=== PATIENT | female | born 1930 | race Caucasian/White ===

== ENCOUNTER 2017-01-28 09:38 | Inpatient (IN) | payer BC, OTHER ==
[2017-01-28] VITALS (35 sets, daily range): BP systolic 71–196; BP diastolic 29–168
[~2017-01-28] VITALS: Ht 170.2 cm; Wt 74.8 kg
[2017-01-28] MEDS ORDERED: NALOXONE PREFILLED SYRINGE 2 MG/2 ML SYRINGE ONE (09:54)
[2017-01-28] MEDS ORDERED: ALBUTEROL FS 2.5 MG/3 ML VIAL.NEB CONTNEB ONE (10:00)
[2017-01-28] MEDS ORDERED: IPRATROPIUM NEB FS 0.5 MG/2.5 ML AMPUL.NEB NEB ONE (10:00)
[2017-01-28] MEDS ORDERED: IV NS 0.9% 1,000 ML BAG IV ONE (10:00)
[2017-01-28] MEDS ORDERED: NALOXONE HCL 0.4 MG/ML AMPUL IV ONE (10:00)
--- NOTE | 2017-01-28 10:00 | NUR ---
DENISSE Tamayo FROM [facility] FOR SOB THIS AM 84% O2 NOTED IN FIELD. NITOR GIVEN ON FIELD. AT BS FOR EVAL. ON NONREBREATHER. LABORED BREATHING NOTED. AMS NOTED. IV ACCESS KENO WRITER. SECOND IV ACCESS INITIATED. SAFETY AND COMFORT MEASURES PROVIDED. WILL MONITOR.
[2017-01-28 10:02] LABS: ABG BASE EXCESS -5.5 mmol/L; ABG OXYGEN SATURATION 97.3 % (92.0-98.5); ABG PCO2 40.6 mmHg (35.0-45.0); ABG PH 7.317 (7.350-7.450); ABG PO2 101.7 mmHg (75.0-100.0); AaDO2 426.1 mmHg; COHb 0.3 % (0.5-1.5); MetHb 0.3 % (0.0-1.5); O2Hb 96.7 % (94.0-97.0); SITE, ABG Right Radial; VENT MODE, BG NRB
--- NOTE | 2017-01-28 10:02 | NUR ---
RT AT BS FOR ABG. MEDICATED ORDERED.
--- NOTE | 2017-01-28 10:02 | NUR ---
SENIOR ENVIRONMENTAL TECHNICIAN AT FOR BLOOD DRAW.
[2017-01-28] MEDS ORDERED: ALBUTEROL FS 2.5 MG/3 ML VIAL.NEB ONE (10:03)
[2017-01-28] MEDS ORDERED: IPRATROPIUM NEB FS 0.5 MG/2.5 ML AMPUL.NEB ONE (10:04)
[2017-01-28 10:21] LABS: BASOPHILS % (AUTO) 0.4 % (0.0-2.0); EOSINOPHILS % (AUTO) 0.1 % (0.0-6.0); HEMATOCRIT 44 % (33-45); HEMOGLOBIN 14.3 g/dL (11.5-14.8); LYMPHOCYTES # (AUTO) 0.8 /CMM (0.8-4.8); LYMPHOCYTES % (AUTO) 10.3 % (20.0-44.0); MEAN CORPUSCULAR HEMOGLOBIN 30 PG (26.0-33.0); MEAN CORPUSCULAR HGB CONC 33 g/dl (31.0-36.0); MEAN CORPUSCULAR VOLUME 92 fL (82-100); MONOCYTES # (AUTO) 0.8 /CMM (0.1-1.30); MONOCYTES % (AUTO) 10.3 % (2.0-12.0); NEUTROPHILS # (AUTO) 5.9 /CMM (1.8-8.9); NEUTROPHILS % (AUTO) 78.9 % (43.0-81.0); PLATELET COUNT (AUTO) 225 /CMM (150-450); RDW COEFFICIENT OF VARIATION 12.9 (11.5-15.0); RED BLOOD CELL COUNT(AUTO) 4.73 MIL/uL (4.0-5.2); WHITE BLOOD COUNT (AUTO) 7.5 K/uL (4.3-11.0)
[2017-01-28 10:31] LABS: CARBON DIOXIDE 23 mmol/L (21-32); CHLORIDE 109 mmol/L (98-107); CREATININE 1.6 mg/dL (0.6-1.3); GLUCOSE 263 mg/dL (74-106); POTASSIUM 4.7 mmol/L (3.5-5.1); SODIUM SERUM 142 mmol/L (136-145); UREA NITROGEN, BLOOD 42 mg/dL (7-18)
[2017-01-28 10:34] LABS: INR 1.03 (0.87-1.13); PROTHROMBIN TIME 10.7 SECS (9.5-12.7)
[2017-01-28] MEDS ORDERED: GABA-532 PO (10:37)
[2017-01-28] MEDS ORDERED: ACET-868 PO (10:37)
[2017-01-28] MEDS ORDERED: GUAI100S27 PO (10:37)
[2017-01-28] MEDS ORDERED: LISI-607 PO (10:37)
[2017-01-28] MEDS ORDERED: MEMA10TA PO (10:37)
[2017-01-28] MEDS ORDERED: LOPE-156 PO (10:37)
[2017-01-28] MEDS ORDERED: OLAN5TAB3 PO (10:37)
[2017-01-28] MEDS ORDERED: DONE10TA44 PO (10:37)
[2017-01-28 10:45] LABS: ALANINE AMINOTRANSFERASE 21 U/L (12-78); ALBUMIN 2.9 g/dL (3.4-5.0); ALKALINE PHOSPHATASE 85 U/L (46-116); ASPARTATE AMINOTRANSFERASE 23 U/L (15-37); B-TYPE NATRIURETIC PEPTIDE 3459 PG/ML (0-125); BILIRUBIN,DIRECT 0.1 mg/dL (0.0-0.2); BILIRUBIN,TOTAL 0.4 mg/dL (0.2-1.0); TOTAL PROTEIN, SERUM 7.9 g/dL (6.4-8.2)
[2017-01-28 10:52] LABS: TROPONIN I 0.444 ng/mL (0.00-0.056)
--- NOTE | 2017-01-28 11:20 | NUR ---
PT NOTED ON SOILED DIAPER WITH BM- CLEANED AND CHANGED. FC INITIATED. MEDICATED ORDERED.
[2017-01-28] MEDS ORDERED: ASPIRIN 300 MG/SUPP.RECT RC ONE ×2 (11:25→11:30)
[2017-01-28] MEDS ORDERED: FUROSEMIDE 40 MG/4 ML VIAL ONE (11:25)
[2017-01-28] MEDS ORDERED: FUROSEMIDE 40 MG/4 ML VIAL IV ONE (11:30)
[2017-01-28] MEDS ORDERED: METOPROLOL TARTRATE INJ 5 MG/5 ML AMPUL ONE (12:10)
--- NOTE | 2017-01-28 12:10 | NUR ---
DR. VARGAS AT BS.
[2017-01-28] MEDS ORDERED: METOPROLOL TARTRATE INJ 5 MG/5 ML AMPUL IV ONE (12:30)
--- NOTE | 2017-01-28 12:38 | NUR ---
REPORT GIVEN TO JOB RN FOR PING FOR ROOM 107
[2017-01-28] MEDS ORDERED: AMIODARONE 900 MG in IV D5W 482 ML IV PRN ×2 (13:00→14:00)
[2017-01-28] MEDS ORDERED: AMIODARONE 150 MG in IV D5W 100 ML IV ONE (13:00)
[2017-01-28] MEDS ORDERED: MAG HYDROX/AL HYDROX/SIMETH 30 ML UDC PO PRN (13:30)
[2017-01-28] MEDS ORDERED: ACETAMINOPHEN 325 MG TABLET PO PRN (13:30)
[2017-01-28] MEDS ORDERED: MAGNESIUM HYDROXIDE 30 ML UDC PO PRN (13:30)
[2017-01-28] MEDS ORDERED: Z GUARD REMEDY 2 OZ OINT TP PRN (13:30)
[2017-01-28] MEDS ORDERED: HYDROCODONE/APAP 5/325MG 1 EACH TABLET PO PRN (13:30)
[2017-01-28] MEDS: ASPIRIN 81 MG TAB.CHEW PO SCH (13:30)
[2017-01-28] MEDS ORDERED: ONDANSETRON HCL/PF 4 MG/2 ML VIAL IVP PRN (13:30)
[2017-01-28] MEDS ORDERED: ZOLPIDEM TARTRATE 5 MG TABLET PO PRN (13:30)
--- NOTE | 2017-01-28 14:05 | NUR ---
ICU INITIAL NOTE PT TRANSFERRED TO ICU OVERFLOW 107. SHE CAME FROM [facility] FOR SHORTNESS OF BREATH. CURRENTLY ON 10L NON REBRATHER [place]AG AT 96%. SBP 100-110'S CURRENTLY ON AMIO DRIP FOR UNCONTROLLED AFIB RATE HIGH 180'S IN E.R. (AFTER AMIO BOLUS, AMIO DRIP INITIATED AT 1335 IN E.R.). SHE IS LETHARGIC BUT ALERT TO HER NAME WEAK BUT ATTEMPTS TO SQUEEZE HANDS ON COMMAND.
[2017-01-28] MEDS: ENOXAPARIN SODIUM 80 MG/0.8 ML DISP.SYRIN SQ SCH (14:31)
--- NOTE | 2017-01-28 15:27 | NUR ---
AMIO GTT INITIATED AT 1335 WILL CHANGE DOSAGE TO 0.5MG AT 1935 PER PROTOCOL. WILL GIVE REPORT TO ONCOMING SHIFT.
--- NOTE | 2017-01-28 15:30 | NUR ---
PT PLACED ON 3L NC TOLERATING WELL SATURATION AT 95% AND GREATER.
[2017-01-28] MEDS: TOBRAMYCIN/DEXAMETH OPHTH DORPS 2.5 ML BOTTLE EACHEYE SCH ×3 (15:40→21:44)
--- NOTE | 2017-01-28 16:08 | NUR ---
PTS SBP IN THE 80'S WHILE ASLEEP AND 90'S WHILE AWAKE. SHE IS RESPONSIVE AND AROUSABLE TO VERBAL STIMULI, CALLED DR. VARGAS FOR PRESSORS, HE SAYS DO NOT START ANY PRESSORS AT THIS TIME KEEP MONITORING. GIVES OKAY TO INSERT MIDLINE.
[2017-01-28 16:21] LABS: APPEARANCE,URINE SL CLOUDY (CLEAR); BILIRUBIN,URINE NEGATIVE (NEGATIVE); BLOOD, URINE 1+ Ery/uL (NEGATIVE); COLOR,URINE YELLOW (YELLOW); KETONES,URINE TRACE (NEGATIVE); LEUKOCYTE ESTERASE ,URINE 1+ (NEGATIVE); NITRITE, URINE POSITIVE (NEGATIVE); PH,URINE 5.5 (5.0-8.0); PROTEIN,URINE NEGATIVE (NEGATIVE); UGLUCOSE NEGATIVE (NEGATIVE); UROBILINOGEN,URINE 0.2 EU/dL (0.2)
[2017-01-28 16:34] LABS: BACTERIA,URINE Moderate /HPF (None Seen); SQUAMOUS EPITHELIAL CELL,UR Many /HPF (None Seen); URINE AMORPHOUS URATE Moderate /HPF (None Seen)
[2017-01-28] MEDS: FUROSEMIDE 40 MG/4 ML VIAL IV SCH (16:51)
--- NOTE | 2017-01-28 17:04 | NUR ---
PT'S SON ARMANDO CALL [phone] HE CALLED AND I UPDATED HIM ABOUT PT'S STATUS AND PLAN OF CARE.
--- NOTE | 2017-01-28 20:00 | NUR ---
Received patient oriented to name otherwise confused.Bilateral mittens in place to prevent pulling out iv access,NC and monitoring manager leads.Respiration even and unlabored with occasional cough.Unable to expectorate secretions.O2 3L NC saturating 95%.No distress noted.Patient tele from Afib converted to SR 80's- SB 50's non sustaining.Amiodarone drip infusing @ 0.5 mg/min to karen midline. Site intact.FC to gravity draining clear yellow urine.Turned and repositioned.Continue monitoring.
[2017-01-28] MEDS ORDERED: ENOXAPARIN SODIUM 80 MG/0.8 ML DISP.SYRIN SQ SCH (21:00)
--- NOTE | 2017-01-28 21:20 | NUR ---
Patient BP unstable down to 71/40,73/43,74/60 and HR 48-50'S non sustaining. Patient remains lethargic in no acute distress.GLUER MACHINE SETUP OPERATOR,Radha Calixto notified of patient status.Orders received and carried out.Amiodarone stopped and NS 500 ml bolus started.Continue monitoring.
[2017-01-28] MEDS ORDERED: IV NS 0.9% 500 ML IV ONE (21:30)
--- NOTE | 2017-01-28 22:53 | NUR ---
Patient BP down to 83/39 HR 47 non sustaining goes up to 74.Patient awake states Im thirsty.Oral care done.CENTER RECEPTIONIST,Radha Calixto updated of patient status.No new orders received.Continue to monitor.
[2017-01-29] VITALS (23 sets, daily range): BP systolic 79–156; BP diastolic 38–72
--- NOTE | 2017-01-29 | NUR ---
Patient resting.VS stable.SR.Turned and repositioned.
[2017-01-29] MEDS: TOBRAMYCIN/DEXAMETH OPHTH DORPS 2.5 ML BOTTLE EACHEYE SCH ×6 (01:19→21:12)
--- NOTE | 2017-01-29 04:00 | NUR ---
Bathed.complete linen changed.Turned and repositioned.Procedure well tolerated.
[2017-01-29 04:40] LABS: BASOPHILS % (AUTO) 0.2 % (0.0-2.0); EOSINOPHILS % (AUTO) 0.4 % (0.0-6.0); HEMATOCRIT 37 % (33-45); HEMOGLOBIN 12.2 g/dL (11.5-14.8); LYMPHOCYTES # (AUTO) 1.4 /CMM (0.8-4.8); LYMPHOCYTES % (AUTO) 19.6 % (20.0-44.0); MEAN CORPUSCULAR HEMOGLOBIN 30 PG (26.0-33.0); MEAN CORPUSCULAR HGB CONC 33 g/dl (31.0-36.0); MEAN CORPUSCULAR VOLUME 91 fL (82-100); MONOCYTES # (AUTO) 0.5 /CMM (0.1-1.30); MONOCYTES % (AUTO) 7.4 % (2.0-12.0); NEUTROPHILS % (AUTO) 72.4 % (43.0-81.0); PLATELET COUNT (AUTO) 197 /CMM (150-450); RDW COEFFICIENT OF VARIATION 13.4 (11.5-15.0); RED BLOOD CELL COUNT(AUTO) 4.02 MIL/uL (4.0-5.2); WHITE BLOOD COUNT (AUTO) 6.9 K/uL (4.3-11.0)
[2017-01-29 04:56] LABS: ALANINE AMINOTRANSFERASE 19 U/L (12-78); ALBUMIN 2.4 g/dL (3.4-5.0); ALKALINE PHOSPHATASE 65 U/L (46-116); ASPARTATE AMINOTRANSFERASE 13 U/L (15-37); CALCIUM, SERUM 9.4 mg/dL (8.5-10.1); CHLORIDE 113 mmol/L (98-107); CREATININE 1.5 mg/dL (0.6-1.3); GLUCOSE 139 mg/dL (74-106); MAGNESIUM 1.9 mg/dL (1.8-2.4); PHOSPHORUS 2.4 mg/dL (2.5-4.9); POTASSIUM 3.5 mmol/L (3.5-5.1); SODIUM SERUM 146 mmol/L (136-145); UREA NITROGEN, BLOOD 43 mg/dL (7-18)
[2017-01-29 05:08] LABS: CARBON DIOXIDE 23 mmol/L (21-32)
[2017-01-29 05:09] LABS: BILIRUBIN,TOTAL 0.4 mg/dL (0.2-1.0); TOTAL PROTEIN, SERUM 6.6 g/dL (6.4-8.2)
[2017-01-29 05:31] LABS: CHOLESTEROL 13 mg/dL (<200); HDL CHOLESTEROL 44 mg/dL (40-60); LDL 81 mg/dL (0-99); THYROID STIMULATING HORMONE 0.671 uIU/mL (0.358-3.74); TRIGLYCERIDES 59 mg/dL (30-150)
--- NOTE | 2017-01-29 07:00 | NUR ---
Patient resting in no distress.SBP 85,SR 50's-70's.All needs attended.Endorsed to am shift RN for continuity of care.
--- NOTE | 2017-01-29 07:56 | NUR ---
INITIAL LODGE OFFICER NOTE RCVD PT SLEEPING IN BED AROUSED TO TOUCH. SR/SB ON TELE VITAL SIGNS STABLE AT THIS TIME. PT SHOWING NO S/O DISTRESS/PAIN. PT TOLERATING O2 VIA NC. PT ALERT TO NAME ABLE TO FOLLOW SIMPLE COMMANDS. BILATERAL MITTENS IN PLACE CIRCULATION CHECKS MADE. PULSES PRESENT BILATERALLY. PAULSON IN PLACE DRAINING CLOUDY, YELLOW URINE. IV SITES C/D/I/PATENT. NO S/O INFILTRATION/PHLEBITIS OBSERVED. NO IVF INFUSING. WILL CONTINUE TO MONITOR PT FOR SAFETY AND COMFORT. CALL LIGHT WITHIN REACH. BED IN LOW AND LOCKED POSITION.
[2017-01-29] MEDS: ASPIRIN 81 MG TAB.CHEW PO SCH (08:32)
[2017-01-29] MEDS: ENOXAPARIN SODIUM 80 MG/0.8 ML DISP.SYRIN SQ SCH (08:44)
--- NOTE | 2017-01-29 08:54 | NUR ---
CAR HOPPER NOTE PT'S SB 30-40S, ST 130s NON-SUSTAINING. RADIAL PULSE PALPATED IN 50-60s. WILL CONTINUE TO MONITOR.
[2017-01-29] MEDS: FUROSEMIDE 40 MG/4 ML VIAL IV SCH (08:58)
--- NOTE | 2017-01-29 09:56 | NUR ---
PLANT CONTROLLER NOTE DR. DWYER IN UNIT INFORMED OF PT'S LABILE HR 30/40s -140s THIS AM. HE RECOMMENDED TO CONTINUE WITH AMIODARONE PO. WILL CONTINUE TO MONITOR. BP MAINTAINED WNL. Addendum: 01/29/17 at 1035 by PRITESH CANALES RN DR. DWYER INFORMED OF PT'S LOW SBP LOW 70s OVERNIGHT. AND 80s THIS AM. BP MANUALLY CHECKED 103/50 RICHARD. WILL CONTINUE TO MONITOR. HE RECOMMENDS PT TO BE DOWNGRADED TO TELE.
[2017-01-29] MEDS ORDERED: POTASSIUM PHOSPHATE MM 15 MMOL in IV D5W 250 ML IV SCH (10:00)
[2017-01-29] MEDS: AMIODARONE HCL 200 MG TABLET PO SCH ×2 (10:00→16:22)
[2017-01-29] MEDS ORDERED: RIVAROXABAN 10 MG TABLET PO SCH (10:00)
[2017-01-29] MEDS: POTASSIUM PHOSPHATE MM 7.5 MMOL in IV D5W 100 ML IV SCH ×2 (10:42→13:54)
--- NOTE | 2017-01-29 11:12 | NUR ---
MEDICATION PULP MACHINE OPERATOR NOTE AMIODARONE HELD HR PALPATED 56 WILL CONTINUE TO MONITOR.
[2017-01-29] MEDS: RIVAROXABAN 15 MG TABLET PO SCH (13:18)
--- NOTE | 2017-01-29 13:21 | NUR ---
MOBILE EQUIPMENT OPERATOR NOTE PT'S SONARMANDO AT BEDSIDE UPDATED ON PT'S CONDITION. QUESTIONS ANSWERED. WILL CONTINUE TO MONITOR PT.
--- NOTE | 2017-01-29 19:50 | NUR ---
TELE/RN NOTES RECEIVED PT. LYING IN BED. AWAKE, ALERT AND ORIENTED X1, FOLLOWS COMMANDS. BREATHING EVEN AND UNLABORED ON 3LPM O2 VIA NC. NO SOB, RESPIRATORY DISTRESS OR COMPLAINTS OF PAIN NOTED AT THIS TIME. PT. WITH EXTERNAL STONE LAYER PRESENT AND INTACT. CURRENT RHYTHM = SINUS RHYTHM WITH PVC'S HR 86. PT. IV SITES CLEAN, DRY AND INTACT. NO SIGNS OR SYMPTOMS OF INFECTION OR INFILTRATION NOTED. PT. WITH BILATERAL MITTENS PRESENT AND INTACT. CIRCULATION CHECKS MADE. PT. WITH PAULSON CATHETER PRESENT, PATENT AND INTACT DRAINING CLOUDY YELLOW URINE. BED LOCKED AND IN LOWEST POSITION, SIDE RAILS UP X3, BED ALARM ON, CALL LIGHT WITHIN REACH, WILL CONTINUE TO MONITOR.
[2017-01-30] VITALS: BP 135/70
[2017-01-30] MEDS: TOBRAMYCIN/DEXAMETH OPHTH DORPS 2.5 ML BOTTLE EACHEYE SCH ×6 (01:49→20:33)
[2017-01-30 04:00] VITALS: BP 138/68
--- NOTE | 2017-01-30 06:48 | NUR ---
TELE/RN NOTES PT. IS LYING IN BED RESTING. BREATHING EVEN AND UNLABORED ON 3LPM O2 VIA NC. NO SOB, RESPIRATORY DISTRESS OR COMPLAINTS OF PAIN NOTED AT THIS TIME. PT. WITH EXTERNAL RN PICU PRESENT AND INTACT. CURRENT RHYTHM = SINUS RHYTHM HR 96. PT. IV SITES CLEAN, DRY AND INTACT. NO SIGNS OR SYMPTOMS OF INFECTION OR INFILTRATION NOTED. PT. WITH BILATERAL MITTENS PRESENT AND INTACT. CIRCULATION CHECKS MADE. PT. WITH PAULSON CATHETER PRESENT, PATENT AND INTACT DRAINING CLOUDY YELLOW URINE. ALL PT. NEEDS MET. PT. TURNED AND REPOSITIONED Q2H AND NEEDED. BED LOCKED AND IN LOWEST POSITION, SIDE RAILS UP X3, BED ALARM ON, CALL LIGHT WITHIN REACH, WILL ENDORSE TO DAYSHIFT NURSE FOR CONTINUITY OF CARE.
--- NOTE | 2017-01-30 07:05 | NUR ---
RN NOTES RECEIVED PT ON BED, ALERT AND ORIENTED X1, FOLLOWS COMMANDS. RESPIRATION EVEN AND UNLABORED, ON 3L O2 N/C , NO SOB NOTED. L UPPER ARM MILD LINE AND R UPPER ARM IV SITE G 20 CDI, NO SIGNS AND SYMPTOMS OF INFECTION OR INFILTRATION NOTED. PT. WITH BILATERAL MITTENS PRESENT AND INTACT. PT HAS TENDENCY TO PULL ON HER LINES , CIRCULATION CHECKS MADE. PAULSON CATHETER DRAINING TO GRAVITY WITH CLOUDY YELLOW URINE. CALL LIGHT WITHIN EASY REACH, BED LOCKED AND IN LOWEST POSITION, SIDE RAILS UP X3, BED ALARM ON FOR PT SAFETY , WILL CONTINUE TO MONITOR.
[2017-01-30 08:00] VITALS: BP 119/69
--- NOTE | 2017-01-30 08:55 | NUR ---
WOUND CARE CONSULT: PT PRESENTS WITH RASH TO BUTTOCKS WITH SKIN STAINING. RECOMMENDATIONS MADE FOR SKIN PROTECTION AND CARE. DISCUSSED WITH NURSING STAFF. PT ON DANNY ISOFLEX LOW AIRLOSS BED. ALL SKIN PROTECTION MEASURES IN PLACE. WILL SEE PRN. TAYLOR IN AGREEMENT WITH PLAN OF CARE. Addendum: 01/30/17 at 0856 by JOSE FERNÁNDEZ WNDNU Amended: Links added.
[2017-01-30] MEDS: AMIODARONE HCL 200 MG TABLET PO SCH ×2 (08:59→16:37)
[2017-01-30] MEDS: CLOTRIMAZOLE 1% 15 GM TUBE TP SCH ×2 (12:30→16:37)
[2017-01-30] MEDS ORDERED: IV D5/0.45 NACL 1,000 ML IV ONE (14:00)
--- NOTE | 2017-01-30 14:30 | NUR ---
RN NOTES NOTIFIED REGARDING NPO ORDER ,PT PLACED BACK ON TELE AND ORDER RECEIVED TO START PT ON IVF D51/2NS AT 80CC/HR .
[2017-01-30 16:00] VITALS: BP 128/62
[2017-01-30] MEDS: RIVAROXABAN 15 MG TABLET PO SCH (16:36)
--- NOTE | 2017-01-30 18:00 | NUR ---
RN NOTES VSS STABLE, HOB ELEVATED, MEDICATED PER MD ORDER , SR UP x3, CALL LIGHT WITHIN EASY REACH, IVF D51/2NS AT 80CC/HR RUNNING VIA L UPPER ARM MIDLINE , WILL ENDORSE TO JAX SHIFT NURSE FOR JAY .
[2017-01-30 20:00] VITALS: BP 130/66
--- NOTE | 2017-01-30 20:08 | NUR ---
ASSISTANT BROKER INITIAL NOTE PT IS IN NO ACUTE DISTRESS. PT IS A/O X1 BUT FOLLOWS COMMANDS AT TIMES. BRETAHING PATTERN IS ADEQUATE WITH GOOD CHEST RISE/FALL. ON TELE WITH SR W PVC'S. F/C IS CLEAN DRY AND INTACT DRAINING URINE. PT IS NPO DUE TO ASPIRATION PRECAUTIONS. RICHARD MIDLINE AND KAIN 20G ARE CLEAN DRY AND INTACT. SAFETY AND COMFORT MEASURES TO BE PLACED DURING THE SHIFT. WILL CONTINUE TO MONITOR FOR CHANGES.
[2017-01-31] VITALS: BP 118/56
[2017-01-31] MEDS: TOBRAMYCIN/DEXAMETH OPHTH DORPS 2.5 ML BOTTLE EACHEYE SCH ×6 (00:57→21:38)
[2017-01-31 04:00] VITALS: BP 135/75
--- NOTE | 2017-01-31 07:00 | NUR ---
RN NOTE RECEIVED PT ON BED, A/Ox1, RESPIRATION EVEN AND UNLABORED, NO SOB NOTED, FOLLOWS SIMPLE COMMANDS , ON TELE WITH SR W PVC'S. PAULSON DRAINING TO GRAVITY WITH YELLOW URINE. NPO DUE TO ASPIRATION PRECAUTIONS. L UA MIDLINE AND R UA 20G SITES ARE CLEAN DRY , INTACT. SR UP x3, CALL LIGHT WITHIN EASY REACH, BED LOCKED AND IN LOWEST POSITION. WILL CONTINUE TO MONITOR PT CLOSELY
[2017-01-31 08:00] VITALS: BP 124/60
[2017-01-31] MEDS: AMIODARONE HCL 200 MG TABLET PO SCH ×2 (08:20→17:03)
[2017-01-31] MEDS: CLOTRIMAZOLE 1% 15 GM TUBE TP SCH ×2 (08:21→17:05)
[2017-01-31 08:58] LABS: BASOPHILS # (AUTO) 0.1 /CMM (0.0-0.2); BASOPHILS % (AUTO) 0.5 % (0.0-2.0); EOSINOPHILS # (AUTO) 0.1 /CMM (0.0-0.7); HEMATOCRIT 41 % (33-45); HEMOGLOBIN 13.4 g/dL (11.5-14.8); LYMPHOCYTES # (AUTO) 1.5 /CMM (0.8-4.8); LYMPHOCYTES % (AUTO) 13.8 % (20.0-44.0); MEAN CORPUSCULAR HEMOGLOBIN 30 PG (26.0-33.0); MEAN CORPUSCULAR HGB CONC 33 g/dl (31.0-36.0); MEAN CORPUSCULAR VOLUME 90 fL (82-100); MONOCYTES # (AUTO) 0.3 /CMM (0.1-1.30); MONOCYTES % (AUTO) 2.5 % (2.0-12.0); NEUTROPHILS # (AUTO) 8.7 /CMM (1.8-8.9); NEUTROPHILS % (AUTO) 82.2 % (43.0-81.0); PLATELET COUNT (AUTO) 271 /CMM (150-450); RDW COEFFICIENT OF VARIATION 13.6 (11.5-15.0); RED BLOOD CELL COUNT(AUTO) 4.54 MIL/uL (4.0-5.2); WHITE BLOOD COUNT (AUTO) 10.6 K/uL (4.3-11.0)
[2017-01-31 09:08] LABS: CALCIUM, SERUM 9.6 mg/dL (8.5-10.1); CARBON DIOXIDE 23 mmol/L (21-32); CHLORIDE 113 mmol/L (98-107); CREATININE 1.5 mg/dL (0.6-1.3); GLUCOSE 165 mg/dL (74-106); POTASSIUM 3.4 mmol/L (3.5-5.1); SODIUM SERUM 147 mmol/L (136-145); UREA NITROGEN, BLOOD 47 mg/dL (7-18)
--- NOTE | 2017-01-31 09:30 | NUR ---
RN NOTES RA [address] HARRIS REQUEST . O2 SAT ON RA 87%. CONTINUE O2 AT 3L N/C PER DR Pooja HARRIS ORDER . CONTINUE TO MONITOR .
[2017-01-31] MEDS: Potassium Chloride 10 MEQ in IV D5/0.45 NACL 1,000 ML IV PRN (10:02)
--- NOTE | 2017-01-31 11:00 | NUR ---
RN NOTES DR HARRIS NOTIFIED REGARDING THE LAB AND C-XRAY RESULTS PER HIS REQUEST .
[2017-01-31] MEDS: PIPERACILLIN /TAZOBACTAM 2.25 G in IV D5W 50 ML IV SCH ×2 (11:42→17:02)
[2017-01-31 12:00] VITALS: BP 139/82
[2017-01-31] MEDS ORDERED: POTASSIUM CL. PREMIX PERIPHER. 50 ML IV ONE (13:00)
[2017-01-31] MEDS: POTASSIUM CL. PREMIX PERIPHER. 50 ML IV SCH ×2 (13:16→14:25)
[2017-01-31 16:00] VITALS: BP 137/71
[2017-01-31] MEDS: RIVAROXABAN 15 MG TABLET PO SCH (17:03)
--- NOTE | 2017-01-31 18:00 | NUR ---
RN NOTES PT MEDICATED PER MD ORDER, TOLERATING PUREED DIET WELL, HOB ELEVATED AT ALL TIMES , SR UP x3, CALL LIGHT WITHIN EASY REACH, NO SIGNIFICANT CHANGES NOTED ON THIS SHIFT , WILL ENDORSE TO PRODUCT DIRECTOR NURSE FOR JAY .
[2017-01-31 20:00] VITALS: BP 123/63
[2017-02-01] VITALS: BP 126/68
[2017-02-01] MEDS: PIPERACILLIN /TAZOBACTAM 2.25 G in IV D5W 50 ML IV SCH ×4 (00:28→17:15)
[2017-02-01] MEDS: Potassium Chloride 10 MEQ in IV D5/0.45 NACL 1,000 ML IV PRN (01:55)
[2017-02-01] MEDS: TOBRAMYCIN/DEXAMETH OPHTH DORPS 2.5 ML BOTTLE EACHEYE SCH ×5 (01:56→17:55)
[2017-02-01 04:00] VITALS: BP 126/58
--- NOTE | 2017-02-01 05:00 | NUR ---
RN INITIAL NOTES RECEIVED REPORT FROM GILBERT MONGE FOR THE PATIENT'S JAY. PATIENT IS SLEEPING ON BED, EASILY AROUSABLE TO NAME AND TOUCH. A/O X1 ONLY. ON 3L NASAL CANNULA SATURATING WELL, NO S/S OF RESP DISTRESS. SR ON THE MONITOR. PAULSON CATH INTACT. RIGHT UPPER ARM 20G AND LEFT UPPER ARM MIDLINE WITH D5 1/2NS + 10MEQ KCL @ 80MLS/HR, BOTH LINES FLUSHED AND PATENT, NO S/S OF INFILTRATION/INFECTION, DRESSINGS CDI. BILATERAL MITTENS IN PLACE TO PREVENT THE PATIENT FROM PULLING LINE AND TUBINGS. BED LOW AND LOCKED, SIDERAILS UP, BED ALARM ON. WILL MONITOR
--- NOTE | 2017-02-01 06:35 | NUR ---
RN CLOSING NOTES PT REMAINS STABLE OF THE MOMENT. ALL DUE MEDS GIVEN, AM CARE PROVIDED. WILL ENDORSE JAY TO AM RN
[2017-02-01 06:43] LABS: BASOPHILS % (AUTO) 0.3 % (0.0-2.0); EOSINOPHILS # (AUTO) 0.5 /CMM (0.0-0.7); EOSINOPHILS % (AUTO) 3.9 % (0.0-6.0); HEMATOCRIT 37 % (33-45); HEMOGLOBIN 12.2 g/dL (11.5-14.8); LYMPHOCYTES % (AUTO) 16.6 % (20.0-44.0); MEAN CORPUSCULAR HEMOGLOBIN 30 PG (26.0-33.0); MEAN CORPUSCULAR HGB CONC 33 g/dl (31.0-36.0); MEAN CORPUSCULAR VOLUME 91 fL (82-100); MONOCYTES # (AUTO) 0.6 /CMM (0.1-1.30); MONOCYTES % (AUTO) 4.7 % (2.0-12.0); NEUTROPHILS # (AUTO) 9.1 /CMM (1.8-8.9); NEUTROPHILS % (AUTO) 74.5 % (43.0-81.0); PLATELET COUNT (AUTO) 248 /CMM (150-450); RDW COEFFICIENT OF VARIATION 13.6 (11.5-15.0); RED BLOOD CELL COUNT(AUTO) 4.07 MIL/uL (4.0-5.2); WHITE BLOOD COUNT (AUTO) 12.2 K/uL (4.3-11.0)
[2017-02-01 07:01] LABS: CALCIUM, SERUM 9.1 mg/dL (8.5-10.1); CARBON DIOXIDE 23 mmol/L (21-32); CHLORIDE 112 mmol/L (98-107); CREATININE 1.5 mg/dL (0.6-1.3); GLUCOSE 191 mg/dL (74-106); POTASSIUM 3.5 mmol/L (3.5-5.1); SODIUM SERUM 145 mmol/L (136-145); UREA NITROGEN, BLOOD 38 mg/dL (7-18)
--- NOTE | 2017-02-01 07:31 | NUR ---
RN NOTES RECEIVED PT FROM CONSTRUCTION ENGINEER IN STABLE CONDITION, RESTING IN BED ON 3L NC WITH NO SOB OR DISTRESS NOTED. A&0X1, SR ON THE TELE MONITOR HR 61. PAULSON DRAINING TO GRAVITY. RICHARD MIDLINE, KAIN 20G DRESSING DRY AND INTACT WITH IVF @ 80ML/HR. PT HAS MITTENS DUE TO EPISODES OF ATTEMPTING TO PULL OUT LINES DURING THE CONSTRUCTION ENGINEER, WILL REMOVE AND CHECK. BED LOCKED AND IN LOWEST POSITION, CALL LIGHT WITHIN REACH, SIDE RAILS UPX3, WILL CONT TO MONITOR.
[2017-02-01 08:00] VITALS: BP 132/66
--- NOTE | 2017-02-01 08:30 | NUR ---
RN NOTES DR HARRIS AT BEDSIDE, ATTEMPTED TO REMOVE NASAL CANNULA, PT O2 WENT TO 88% ON RA. PER DR HARRIS PT WILL BE DISCHARGED HOME WITH OXYGEN.
[2017-02-01] MEDS ORDERED: TOBR2.5D EACHEYE ×2 (08:36→08:42)
[2017-02-01] MEDS ORDERED: APIX2.5T PO (08:36)
[2017-02-01] MEDS: AMIODARONE HCL 200 MG TABLET PO SCH ×2 (08:50→17:15)
[2017-02-01] MEDS: CLOTRIMAZOLE 1% 15 GM TUBE TP SCH ×2 (08:51→17:18)
[2017-02-01] MEDS ORDERED: IPRATROPIUM NEB FS 0.5 MG/2.5 ML AMPUL.NEB NEB PRN (09:00)
[2017-02-01] MEDS ORDERED: ALBUTEROL FS 2.5 MG/0.5 ML VIAL.NEB NEB PRN (09:00)
[2017-02-01 16:00] VITALS: BP 131/81
--- NOTE | 2017-02-01 17:00 | NUR ---
RN NOTES REPORT GIVEN TO AURY FROM [facility], PT TO BE PICKED UP BY AMBULANCE AT 1630, DAUGHTER NOTIFIED.
[2017-02-01 17:15] VITALS: BP 131/18
[2017-02-01] MEDS: RIVAROXABAN 15 MG TABLET PO SCH (17:18)
--- NOTE | 2017-02-01 18:41 | NUR ---
RN NOTES PT DISCHARGED IN STABLE CONDITION WITH AMBULANCE AT BEDSIDE, OXYGEN ON, MIDLINE AND IV REMOVED.
== END 2017-02-01 18:33 | DRG 291 ==
LOC: ER 09:40 → ICUOV 12:52 → TELE1 01-29 10:48 → MEDSG1 01-30 07:09 → TELE1 01-30 13:53 → MEDSG1 02-01 08:21
PROVIDERS: ADMIT Internal Medicine; ATTEND Internal Medicine
PROC: 05H633Z Insertion of Infusion Device into Left Subclavian Vein, Percutaneous Approach (ICD-10-PCS; principal; 2017-01-28)
PROC: B547ZZA Ultrasonography of Left Subclavian Vein, Guidance (ICD-10-PCS; 2017-01-28)
DX: I13.0 Hypertensive heart and chronic kidney disease with heart failure and stage 1 through stage 4 chronic kidney disease, or unspecified chronic kidney disease (principal); G93.41 Metabolic encephalopathy; J96.01 Acute respiratory failure with hypoxia; N17.0 Acute kidney failure with tubular necrosis; D68.59 Other primary thrombophilia; N18.3 Chronic kidney disease, stage 3 (moderate); I48.0 Paroxysmal atrial fibrillation; I50.31 Acute diastolic (congestive) heart failure; J44.9 Chronic obstructive pulmonary disease, unspecified; F03.90 Unspecified dementia, unspecified severity, without behavioral disturbance, psychotic disturbance, mood disturbance, and anxiety; H10.9 Unspecified conjunctivitis
CPT/HCPCS: 36415; 36569; 36600; 71010-TC; 80048-TC; 80053-TC; 80061-TC; 80076-TC; 81000-TC; 83735-TC; 83880; 84100-TC; 84443-TC; 84484-TC; 85025-TC; 85730-TC; 87040-TC; 87081-TC; 87086-TC; 87186-TC; 87400; 92526; 92611-TC; 93307-TC; A4606; J0282; J1650; J1940; J2310; J2543; J3480; J3490; J7030; J7040; J7050; J7060; Z7610

== ENCOUNTER 2017-10-10 15:00 | Inpatient (IN) | payer BC, OTHER ==
[~2017-10-10] VITALS: Ht 152.4 cm; Wt 67.1 kg
[~2017-10-10 15:00] MED LIST: ACET-868 PO; APIX2.5T PO; DONE10TA44 PO; GABA-532 PO; GUAI100S27 PO; LISI-607 PO; LOPE-156 PO; MEMA10TA PO; OLAN5TAB3 PO; TOBR2.5D EACHEYE
--- NOTE | 2017-10-10 15:05 | NUR ---
AAOX2, [id number] FROM [facility] FOR MORE ALTERED THAN NORMAL. RR IS EVEN AND UNLABORED WITH NAD NOTED. SKIN IS WARM AND DRY. PLACED ON THE MONITOR AND HOSPITAL GOWN. AWAITING MD FOR EVAL.
[2017-10-10 15:36] LABS: BASOPHILS # (AUTO) 0.2 /CMM (0.0-0.2); BASOPHILS % (AUTO) 2.8 % (0.0-2.0); EOSINOPHILS % (AUTO) 2.3 % (0.0-6.0); HEMATOCRIT 42 % (33-45); HEMOGLOBIN 14.2 g/dL (11.5-14.8); LYMPHOCYTES # (AUTO) 1.8 /CMM (0.8-4.8); LYMPHOCYTES % (AUTO) 21.2 % (20.0-44.0); MEAN CORPUSCULAR HGB CONC 34 g/dl (31.0-36.0); MEAN CORPUSCULAR VOLUME 91 fL (82-100); MONOCYTES # (AUTO) 0.4 /CMM (0.1-1.30); MONOCYTES % (AUTO) 4.8 % (2.0-12.0); NEUTROPHILS # (AUTO) 5.8 /CMM (1.8-8.9); NEUTROPHILS % (AUTO) 68.9 % (43.0-81.0); PLATELET COUNT (AUTO) 186 /CMM (150-450); RDW COEFFICIENT OF VARIATION 13.1 (11.5-15.0); RED BLOOD CELL COUNT(AUTO) 4.61 MIL/uL (4.0-5.2); WHITE BLOOD COUNT (AUTO) 8.4 K/uL (4.3-11.0)
[2017-10-10 15:46] LABS: CALCIUM, SERUM 10.3 mg/dL (8.5-10.1); CARBON DIOXIDE 26 mmol/L (21-32); CHLORIDE 106 mmol/L (98-107); CREATININE 1.3 mg/dL (0.6-1.3); GLUCOSE 173 mg/dL (74-106); POTASSIUM 4.9 mmol/L (3.5-5.1); SODIUM SERUM 138 mmol/L (136-145); UREA NITROGEN, BLOOD 23 mg/dL (7-18)
[2017-10-10 15:47] LABS: INR 1.03 (0.85-1.15)
[2017-10-10 15:51] LABS: ALANINE AMINOTRANSFERASE 16 U/L (12-78); ALBUMIN 3.1 g/dL (3.4-5.0); ALKALINE PHOSPHATASE 66 U/L (46-116); ASPARTATE AMINOTRANSFERASE 13 U/L (15-37); BILIRUBIN,DIRECT 0.1 mg/dL (0.0-0.2); BILIRUBIN,TOTAL 0.2 mg/dL (0.2-1.0); TOTAL PROTEIN, SERUM 6.6 g/dL (6.4-8.2)
[2017-10-10 15:52] LABS: ACETAMINOPHEN < 2 ug/ml (10-30)
[2017-10-10 15:53] LABS: TROPONIN I < 0.017 ng/mL (0.00-0.056)
[2017-10-10 15:56] LABS: APPEARANCE,URINE Cloudy (CLEAR); BILIRUBIN,URINE Negative (NEGATIVE); BLOOD, URINE Small Ery/uL (NEGATIVE); COLOR,URINE Yellow (YELLOW); KETONES,URINE Trace (NEGATIVE); LEUKOCYTE ESTERASE ,URINE Large (NEGATIVE); NITRITE, URINE Negative (NEGATIVE); PROTEIN,URINE 30 mg/dl (NEGATIVE); UGLUCOSE Negative (NEGATIVE); UROBILINOGEN,URINE 0.2 EU/dL (0.2)
[2017-10-10 16:00] LABS: BACTERIA,URINE Many /HPF (None Seen); WBC,URINE TOO NUMEROUS TO COUN /HPF (0-3)
[2017-10-10] MEDS ORDERED: IV NS 0.9% 500 ML BAG IV ONE ×2 (16:00→17:00)
[2017-10-10 16:01] LABS: SQUAMOUS EPITHELIAL CELL,UR Moderate /HPF (None Seen)
[2017-10-10 16:17] LABS: THYROID STIMULATING HORMONE 0.985 uIU/mL (0.358-3.74)
--- NOTE | 2017-10-10 16:50 | NUR ---
PATIENT CAME BACK FROM CT HEAD.
--- NOTE | 2017-10-10 17:17 | NUR ---
DR DUBOSE ORDERED A TOTAL OF 1800ML OF IV NS TO BE GIVEN TO PATIENT PER SEPSIS PROTOCOL 31ML/KG.
[2017-10-10] MEDS ORDERED: METO-356 PO (17:30)
[2017-10-10] MEDS ORDERED: PIPERACILLIN /TAZOBACTAM 3.375 G in IV D5W 50 ML IV ONE (17:30)
[2017-10-10] MEDS ORDERED: IPRA3AMP23 IH (17:30)
[2017-10-10] MEDS ORDERED: IV NS 0.9% 1,000 ML BAG IV ONE (17:30)
[2017-10-10] MEDS ORDERED: LORA1TAB PO (17:30)
[2017-10-10] MEDS ORDERED: APIX2.5T PO (17:30)
--- NOTE | 2017-10-10 18:05 | NUR ---
Dr Chisholm at talking to the daughter.
--- NOTE | 2017-10-10 19:02 | NUR ---
Report given to GILBERT Ahuja for JAY.
--- NOTE | 2017-10-10 19:40 | NUR ---
CALLED TELE TO GIVE REPORT. PT NOT ASSIGNED YET. WILL CALL BACK IN 10 MINS.
--- NOTE | 2017-10-10 19:55 | NUR ---
CALLING REPORT TO TELE NURSE.
--- NOTE | 2017-10-10 20:10 | NUR ---
RN ADMITTING NOTES RECEIVED REPORT FROM RN CLINICAL TRIALS CULLEN. Pt WAS BROUGHT UP TO THE FLOOR VIA GURNEY. Pt WAS AWAKE. NO S/S OF ACUTE DISTRESS OR SOB NOTED. Pt IS A/OX1, ALERT ONLY TO NAME, VERY CONFUSED. Pt IS ABLE TO FOLLOW SOME INSTRUCTIONS TO SOME EXTENT, Pt IS VERBAL. IV ACCESS ON LHAND #20G. ON TELE MONITOR. SAFETY MEASURES IN PLACE. BED LOW, LOCKED, HOB ELEVATED, SIDE RAILS UP, AND BED ALARM ON. WILL CONTINUE TO MONITOR Pt THROUGHOUT THE NIGHT FOR SAFETY.
[2017-10-10 20:30] VITALS: BP 117/79
--- NOTE | 2017-10-10 23:03 | NUR ---
RN NOTES SPOKE WITH DR HARRIS ON THE PHONE. SAID OK TO CONTINUE WITH THE DNR CODE STATUS PER Pt's POLST. ALSO OK'd TO CONTINUE LORAZEPAM 1MG PO HS.
[2017-10-10] MEDS: IV 1/2NS 1000 ML 1,000 ML IV SCH (23:26)
[2017-10-10] MEDS ORDERED: LORAZEPAM 1 MG TABLET PO PRN (23:30)
[2017-10-11] VITALS: BP_SYST 117; BP_SYST 121; BP_DIAS 62; BP_DIAS 79
[2017-10-11 04:00] VITALS: BP 124/73
--- NOTE | 2017-10-11 06:35 | NUR ---
RN CLOSING NOTES NO SIGNIFICANT CHANGES IN Pt's CONDITION. Pt REMAINS STABLE AT THIS TIME. NO S/S OF ACUTE DISTRESS OR SOB NOTED. ALL NEEDS MET AND ATTENDED TO. SAFETY MEASURES IN PLACE. WILL ENDORSE TO DAYSHIFT RN FOR Pt's JAY.
[2017-10-11 06:39] LABS: CALCIUM, SERUM 9.2 mg/dL (8.5-10.1); CARBON DIOXIDE 22 mmol/L (21-32); CHLORIDE 110 mmol/L (98-107); CREATININE 1.1 mg/dL (0.6-1.3); GLUCOSE 116 mg/dL (74-106); POTASSIUM 3.9 mmol/L (3.5-5.1); SODIUM SERUM 140 mmol/L (136-145); UREA NITROGEN, BLOOD 19 mg/dL (7-18)
[2017-10-11 06:43] LABS: BASOPHILS % (AUTO) 0.6 % (0.0-2.0); EOSINOPHILS % (AUTO) 5.1 % (0.0-6.0); HEMATOCRIT 39 % (33-45); LYMPHOCYTES # (AUTO) 1.9 /CMM (0.8-4.8); LYMPHOCYTES % (AUTO) 28.7 % (20.0-44.0); MEAN CORPUSCULAR HGB CONC 33 g/dl (31.0-36.0); MEAN CORPUSCULAR VOLUME 93 fL (82-100); MONOCYTES # (AUTO) 0.5 /CMM (0.1-1.30); MONOCYTES % (AUTO) 6.8 % (2.0-12.0); NEUTROPHILS % (AUTO) 58.8 % (43.0-81.0); PLATELET COUNT (AUTO) 169 /CMM (150-450); RDW COEFFICIENT OF VARIATION 13.4 (11.5-15.0); RED BLOOD CELL COUNT(AUTO) 4.21 MIL/uL (4.0-5.2); WHITE BLOOD COUNT (AUTO) 6.7 K/uL (4.3-11.0)
--- NOTE | 2017-10-11 07:30 | NUR ---
RN [id number] NOTES RECEIVED PATIENT IN BED RESTING, CONFUSED. NO ACUTE DISTRESS, NO SOB. NO S/S OF PAIN OR DISCOMFORT. IV ACCESS INTACT AND PATENT. KEPT PATIENT SAFE AND COMFORTABLE. BED ALARM ON FOR SAFETY. BED IN LOW/LOCKED POSITION, SIDERAILS UP, CALL LIGHT IN REACH. WILL CONTINUE TO MONITOR ACCORDINGLY.
[2017-10-11 08:00] VITALS: BP 127/80
[2017-10-11] MEDS ORDERED: LEVO750T21 PO (08:54)
[2017-10-11] MEDS ORDERED: LEVOFLOXACIN (250MG) 250 MG TABLET PO SCH (09:00)
[2017-10-11] MEDS ORDERED: CEFTRIAXONE 1 G in IV D5W 50 ML IV SCH (10:00)
[2017-10-11] MEDS ORDERED: ALBUTEROL FS 2.5 MG/0.5 ML VIAL.NEB NEB PRN (11:30)
[2017-10-11] MEDS ORDERED: LOPERAMIDE HCL (2 MG CAP) 2 MG CAPSULE PO PRN (11:30)
[2017-10-11] MEDS ORDERED: GUAIFENESIN 300 MG/15 ML UDC PO PRN (11:30)
[2017-10-11] MEDS ORDERED: ACETAMINOPHEN 325 MG TABLET PO PRN (11:30)
[2017-10-11] MEDS: IV 1/2NS 1000 ML 1,000 ML IV SCH (12:30)
--- NOTE | 2017-10-11 16:50 | NUR ---
DISCHARGE NOTES DISCHARGED PATIENT IN STABLE CONDITION, PICKED UP BY DIESEL FLEET MECHANIC. DISCHARGE PAPERWORK AND PRESCRIPTION GIVEN TO DIESEL FLEET MECHANIC. REPORT GIVEN TO GILBERT AGUILA FROM [facility], DISCHARGE INSTRUCTIONS GIVEN, VERBALIZED UNDERSTANDING. REMOVED IV, APPLIED PRESSURE, NO BLEEDING, NO COMPLICATIONS. REMOVED NAME BAND.
[2017-10-11] MEDS ORDERED: APIXABAN 2.5 MG TABLET PO SCH (17:00)
[2017-10-11] MEDS ORDERED: LORAZEPAM 1 MG TABLET PO SCH (22:00)
[2017-10-11] MEDS ORDERED: GABAPENTIN 100 MG CAPSULE PO SCH (22:00)
[2017-10-11] MEDS ORDERED: OLANZAPINE 5 MG TABLET PO SCH (22:00)
[2017-10-12] MEDS ORDERED: MEMANTINE HCL 5 MG TABLET PO SCH (09:00)
[2017-10-12] MEDS ORDERED: METOPROLOL SUCCINATE 25 MG TAB.SR.24H PO SCH (09:00)
[2017-10-12] MEDS ORDERED: LEVOFLOXACIN (750 MG) 750 MG TABLET PO SCH (09:00)
[2017-10-12] MEDS ORDERED: LISINOPRIL (5MG) 5 MG TABLET PO SCH (09:00)
== END 2017-10-11 16:38 | disposition hospice, inpatient (51) | DRG 689 ==
LOC: ER 15:01 → TELE 19:43
PROVIDERS: ADMIT Internal Medicine; ATTEND Internal Medicine
DX: N39.0 Urinary tract infection, site not specified (principal); G93.40 Encephalopathy, unspecified; J44.9 Chronic obstructive pulmonary disease, unspecified; I10 Essential (primary) hypertension; I48.2 Chronic atrial fibrillation; Z79.01 Long term (current) use of anticoagulants; F03.90 Unspecified dementia, unspecified severity, without behavioral disturbance, psychotic disturbance, mood disturbance, and anxiety; Z99.81 Dependence on supplemental oxygen
CPT/HCPCS: 36415; 70450-TC; 71045-TC; 80048-TC; 80076-TC; 81000-TC; 82962-TC; 83605-TC; 84443-TC; 84484-TC; 85025-TC; 85730-TC; 87040-TC; 87081-TC; 87086-TC; 87186-TC; A4606; G0480; J0696; J2543; J3490; J7030; J7040; J7060; Z7610